=== PATIENT | female | born 1940 | race African-American/Black ===

== ENCOUNTER 2018-05-25 09:18 | Day surgery (SDC) | payer OTHER ==
--- NOTE | 2018-05-25 09:37 | PROC ---
Endoscopy Procedure Endoscopy procedure completed. Please see scanned procedure report.
[2018-05-25 10:43] VITALS: BMI 28.3
[2018-05-25] MEDS ORDERED: PROPOFOL 20 ML ONE (11:24)
[2018-05-25 11:26] VITALS: TEMP 97.7
[2018-05-25 15:17] VITALS: BP 149/68; PULSE 50
--- NOTE | 2018-05-26 18:39 | PATH ---
Surgical Pathology Report Patient Name: MELODY WALLACE [facility]. Rec. #: [id number] /Age/Gender: 1940 (Age: 77) / F Account: [id number] Location: [facility]-ENDOSCOPY Taken: 05/25/2018 Received: 05/25/2018 Reported: 05/26/2018 Physicians: Ankit Selby M.D. Specimen(s) Received A: BX DUODENUM B: BX ANTRUM AND BODY C: BX GASTRIC POLYP D: BX MID ESOPHAGUS Clinical History GERD, dysphagia Postoperative diagnosis: Gastric polyps Final Diagnosis A. SECOND PORTION DUODENUM, BIOPSY: DUODENAL MUCOSA WITH MILD CHRONIC DUODENITIS. B. ANTRUM AND BODY, BIOPSY: GASTRIC MUCOSA WITH MILD CHRONIC GASTRITIS. IMMUNOSTAIN IS NEGATIVE FOR H. PYLORI ORGANISMS. C. GASTRIC POLYP, BIOPSY: FUNDIC GLAND POLYP. IMMUNOSTAIN IS NEGATIVE FOR H. PYLORI ORGANISMS. D. MID ESOPHAGUS, BIOPSY: ESOPHAGEAL (SQUAMOUS) MUCOSA WITHMILD CHRONIC INFLAMMATION. NO HISTOLOGIC EVIDENCE OF EOSINOPHILIC ESOPHAGITIS. Electronically Signed Cj Kimball M.D. Gross Description A. Received in formalin, labeled "biopsy second portion of duodenum" are 2 pal, irregular portions of soft tissue measuring 0.3 and 0.4 cm. in greatest dimension. The specimens are submitted in toto in one cassette. B. Received in formalin, labeled "biopsy antrum and body" are 2 pal, irregular portions of soft tissue measuring 0.4 and 0.5 cm. in greatest dimension. The specimens are submitted in toto in one cassette. C. Received in formalin, labeled "biopsy gastric polyp" is a pal, irregular portion of soft tissue measuring 0.4 cm. in greatest dimension. The specimen is submitted in toto in one cassette. D. Received in formalin, labeled "biopsy midesophagus" are 2 pal, irregular portions of soft tissue averaging 0.3 cm. in greatest dimension. The specimens are submitted in toto in one cassette. /05/25/201805/25/2018
== END 2018-05-25 12:30 | disposition home or self-care (01) ==
LOC: JASU-ENDO 09:18
PROVIDERS: ATTEND Internal Medicine Gastroenterology
PROC: 0DB68ZX Excision of Stomach, Via Natural or Artificial Opening Endoscopic, Diagnostic (ICD-10-PCS; 2018-05-25)
PROC: 0DB28ZX Excision of Middle Esophagus, Via Natural or Artificial Opening Endoscopic, Diagnostic (ICD-10-PCS; 2018-05-25)
PROC: 0DB98ZX Excision of Duodenum, Via Natural or Artificial Opening Endoscopic, Diagnostic (ICD-10-PCS; principal; 2018-05-25 12:00)
DX: K31.7 Polyp of stomach and duodenum (principal); K44.9 Diaphragmatic hernia without obstruction or gangrene
CPT/HCPCS: 88305-TC; 88342-TC

== ENCOUNTER → 2019-12-25 | Day surgery (SDC) | payer OTHER ==
--- NOTE | 2019-12-26 16:40 | PATH ---
Cytology Non-Gynecological Report Patient Name: MELODY WALLACE [facility]. Rec. #: [id number] /Age/Gender: 1940 (Age: 79) / F Account: [id number] Location: [facility] Taken: 12/25/2019 Received: 12/25/2019 Reported: 12/26/2019 Physicians: Mallory Young M.D. Specimen(s) Received BREAST, LEFT, CYST, ULTRASOUND GUIDED FINE NEEDLE ASPIRATION Clinical History Left breast cyst Final Diagnosis BREAST, LEFT, CYST, ULTRASOUND GUIDED FINE NEEDLE ASPIRATION: NO MALIGNANT CELLS IDENTIFIED. RARE PROTEINACEOS DEBRIS AND RARE DEGENERATED CELLS SUGGESTIVE OF CYST CONTENTS. NO DUCTAL CELLS IDENTIFIED. Comment: Findings are best seen on the cell block material. Suggest clinical and radiologic correlation. Electronically Signed Torri Urena M.D. Gross Description Approximately 35 cc of clear fluid received fixed in 50% alcohol. One cytofunnel prepared and Pap stained. One cellblock prepared.
== END | disposition home or self-care (01) ==
LOC: JRADUS-SUR 12:07 → JMAMMO-SUR 12:07
PROVIDERS: ATTEND Family Medicine
PROC: 0H9U3ZX Drainage of Left Breast, Percutaneous Approach, Diagnostic (ICD-10-PCS; principal; 2019-12-25)
DX: N60.02 Solitary cyst of left breast (principal)
CPT/HCPCS: 76942-TC; 77065-TC; 87899; 88173; 88305-TC

== ENCOUNTER 2023-07-15 09:30 | Observation (INO) | payer BC, OTHER ==
[2023-07-15] MEDS ORDERED: methylPREDNISolone NA SUCC 125 MG/2 ML VIAL IVPUSH ONE (10:30)
[2023-07-15] MEDS ORDERED: methylPREDNISolone NA SUCC 125 MG/2 ML VIAL ONE (10:43)
[2023-07-15] MEDS ORDERED: BENZOCAINE 20% 57 GM BOTTLE TP ONE (11:25)
[2023-07-15] MEDS ORDERED: TETRACAINE/BENZOCAINE/BUTAMBEN 20 GM SPR TP ONE (11:27)
[2023-07-15] MEDS ORDERED: LIDOCAINE VISCOUS 2% ORAL/TOP 15 ML UNIT-DOSE CUP ONE (11:30)
[2023-07-15 11:46] LABS: BASO % 0.9 % (0-2.0); EOS % 2.8 % (0-4.5); HEMATOCRIT 35.9 % (32.4-45.2); HEMOGLOBIN 11.7 GM/dL (10.7-15.3); LYMPH % 21.9 % (8-40); MCH 30.7 pg (25.7-33.7); MCHC 32.5 g/dl (32.0-36.0); MEAN CELL VOLUME 94.3 fl (80-96); MONO % 10.4 % (3.8-10.2); PLATELET COUNT 232 10^3/uL (134-434); RBC 3.81 M/mm3 (3.60-5.2); RDW 14.3 % (11.6-15.6); WHITE BLOOD COUNT 7.8 K/mm3 (4.0-10.0)
[2023-07-15 11:57] LABS: POTASSIUM 3.3 mmol/L (3.5-5.1)
[2023-07-15 11:59] LABS: CALCIUM 10.2 mg/dL (8.5-10.1)
[2023-07-15 12:00] LABS: ALBUMIN 3.6 g/dl (3.4-5.0)
[2023-07-15 12:05] LABS: BILIRUBIN,TOTAL 0.6 mg/dL (0.2-1); TOT PROT 6.8 g/dl (6.4-8.2)
[2023-07-15] MEDS: D5-1/2NS+20 MEQ KCL - 20 MEQ/1,000 ML INFUS.BAG IV SCH (17:12)
[2023-07-15 20:16] VITALS: BMI 25.1
[2023-07-15] MEDS: methylPREDNISolone NA SUCC 125 MG/2 ML VIAL IVPUSH SCH (21:15)
[2023-07-15] MEDS: HEPARIN NA (PORCINE) 5,000 UNITS/ML 1ML VIAL SQ SCH (22:24)
[2023-07-16] MEDS: methylPREDNISolone NA SUCC 125 MG/2 ML VIAL IVPUSH SCH ×2 (03:22→10:01)
[2023-07-16 08:18] LABS: HEMATOCRIT 37.9 % (32.4-45.2); HEMOGLOBIN 12.2 GM/dL (10.7-15.3); MCH 30.2 pg (25.7-33.7); MCHC 32.1 g/dl (32.0-36.0); MEAN PLT VOLUME 9.2 fl (7.5-11.1); PLATELET COUNT 216 10^3/uL (134-434); RBC 4.03 M/mm3 (3.60-5.2); RDW 14.3 % (11.6-15.6)
[2023-07-16 08:25] LABS: POTASSIUM 3.3 mmol/L (3.5-5.1)
[2023-07-16 08:27] LABS: ALBUMIN 3.2 g/dl (3.4-5.0); CALCIUM 10.3 mg/dL (8.5-10.1)
[2023-07-16 08:28] LABS: BLOOD UREA NITROGEN 21.7 mg/dL (7-18)
[2023-07-16 08:31] LABS: CREATININE 0.9 mg/dL (0.55-1.3)
[2023-07-16 08:32] LABS: BILIRUBIN,TOTAL 0.6 mg/dL (0.2-1); TOT PROT 6.6 g/dl (6.4-8.2)
[2023-07-16 09:39] LABS: ANISOCYTOSIS 0; MACROCYTOSIS 0
[2023-07-16] MEDS: HEPARIN NA (PORCINE) 5,000 UNITS/ML 1ML VIAL SQ SCH (10:01)
[2023-07-16] MEDS: D5-1/2NS+20 MEQ KCL - 20 MEQ/1,000 ML INFUS.BAG IV SCH ×2 (12:23→18:36)
[2023-07-16] MEDS ORDERED: POTASSIUM CHLORIDE ORAL LIQUID 20 MEQ/15 ML PO ONE (14:15)
[2023-07-16 14:28] VITALS: BP 147/76; PULSE 74
[2023-07-16 15:10] VITALS: RESP 18
[2023-07-16 18:36] VITALS: TEMP 98
== END 2023-07-16 18:36 | disposition home or self-care (01) ==
LOC: JER 09:30 → JERBED 15:32 → MERGE 15:32 → J7W 19:29
PROVIDERS: ADMIT Family Medicine; ATTEND Family Medicine
PROC: 3E033GC Introduction of Other Therapeutic Substance into Peripheral Vein, Percutaneous Approach (ICD-10-PCS; principal; 2023-07-15)
PROC: 3E023GC Introduction of Other Therapeutic Substance into Muscle, Percutaneous Approach (ICD-10-PCS; 2023-07-15)
PROC: 3E033GC Introduction of Other Therapeutic Substance into Peripheral Vein, Percutaneous Approach (ICD-10-PCS; 2023-07-15)
DX: T78.3XXA Angioneurotic edema, initial encounter (principal); K21.9 Gastro-esophageal reflux disease without esophagitis; R42 Dizziness and giddiness; I10 Essential (primary) hypertension; R22.0 Localized swelling, mass and lump, head; H40.9 Unspecified glaucoma; E87.6 Hypokalemia; Z98.890 Other specified postprocedural states
CPT/HCPCS: 36415; 70491-TC; 71045-TC-FY; 80053; 84443; 85025; 96372; 96374; 96375; 96376; 99285-25; G0378; J1644; Q9967